=== PATIENT | female | born 1940 | race Caucasian/White ===

== ENCOUNTER 2024-04-08 10:54 | Inpatient (IN) | payer MEDICARE, BC ==
[~2024-04-08] VITALS: Ht 152.4 cm; Wt 53.7 kg
[2024-04-08] MEDS ORDERED: EMPA10TA PO (11:16)
[2024-04-08] MEDS ORDERED: METF-440 PO (11:18)
[2024-04-08] MEDS ORDERED: LEVO25TA9 PO (11:20)
[2024-04-08] MEDS ORDERED: IRBE75TA9 PO (11:22)
[2024-04-08] MEDS ORDERED: BISO5TAB20 PO (11:23)
[2024-04-08] MEDS ORDERED: OMEP20CA15 PO (11:24)
[2024-04-08 12:01] LABS: BASOPHILS # (AUTO) 0.1 K/UL (0.0-0.2); BASOPHILS % (AUTO) 1.1 % (0.0-2.0); EOSINOPHILS # (AUTO) 0.1 K/uL (0.0-0.7); EOSINOPHILS % (AUTO) 1.1 % (0.0-7.0); HEMATOCRIT 32.1 % (31.2-41.9); HEMOGLOBIN 11.3 g/dL (10.9-14.3); LYMPHOCYTES # (AUTO) 1.4 K/uL (0.8-4.8); MEAN CORPUSCULAR HEMOGLOBIN 30.8 uug (24.7-32.8); MEAN CORPUSCULAR HGB CONC 35 g/dL (32.3-35.6); MEAN CORPUSCULAR VOLUME 87.9 fL (75.5-95.3); MONOCYTES # (AUTO) 0.5 K/uL (0.1-1.30); MONOCYTES % (AUTO) 7.2 % (0.0-11.0); NEUTROPHILS # (AUTO) 4.8 K/uL (1.8-8.9); NEUTROPHILS % (AUTO) 70.6 % (38.5-71.5); PLATELET COUNT (AUTO) 214 K/uL (179-408); RED BLOOD CELL COUNT(AUTO) 3.65 MIL/uL (3.63-4.92); WHITE BLOOD COUNT (AUTO) 6.8 K/uL (3.8-11.8)
[2024-04-08 12:03] LABS: DIFFERENTIAL COMMENT 1
[2024-04-08 12:10] LABS: CARBON DIOXIDE 27 mmol/L (21-32); CHLORIDE 105 mmol/L (98-107); CREATININE 0.9 mg/dL (0.6-1.3); GLUCOSE 95 mg/dL (74-106); POTASSIUM 4.4 mmol/L (3.5-5.1); SODIUM SERUM 142 mmol/L (136-145); UREA NITROGEN, BLOOD 14 mg/dL (7-18)
[2024-04-08 12:22] LABS: ALANINE AMINOTRANSFERASE 23 U/L (14-59); ALBUMIN 3.8 g/dL (3.4-5.0); ALKALINE PHOSPHATASE 66 U/L (50-136); ASPARTATE AMINOTRANSFERASE 23 U/L (15-37); BILIRUBIN,DIRECT 0.2 mg/dL (0.0-0.2); BILIRUBIN,TOTAL 0.8 mg/dL (0.2-1.0); NT-PRO BNP 540 pg/mL (0-125); TOTAL PROTEIN, SERUM 7.2 g/dL (6.4-8.2)
[2024-04-08] MEDS ORDERED: IOHEXOL 350 100 ML INFUS..BTL ONE (13:31)
[2024-04-08 20:00] VITALS: BP 138/56; TEMP 97.7; O2SAT 97
[2024-04-08] MEDS ORDERED: ACETAMINOPHEN 325 MG TABLET PO PRN (20:00)
[2024-04-08] MEDS ORDERED: MAGNESIUM HYDROXIDE 30 ML LIQUID UDC PO PRN (20:00)
[2024-04-08] MEDS ORDERED: ONDANSETRON 4 MG/2 ML VIAL IV PRN (20:00)
[2024-04-09 00:36] VITALS: BP 163/63; TEMP 97.7; O2SAT 97
[2024-04-09 04:00] VITALS: BP 145/63; TEMP 97.9; O2SAT 95
[2024-04-09] MEDS: PANTOPRAZOLE SODIUM 40 MG TABLET.DR PO SCH (06:13)
[2024-04-09 06:42] LABS: BASOPHILS % (AUTO) 0.7 % (0.0-2.0); EOSINOPHILS # (AUTO) 0.2 K/uL (0.0-0.7); EOSINOPHILS % (AUTO) 3.3 % (0.0-7.0); HEMATOCRIT 29.8 % (31.2-41.9); LYMPHOCYTES # (AUTO) 2.2 K/uL (0.8-4.8); LYMPHOCYTES % (AUTO) 38.1 % (20.5-51.5); MEAN CORPUSCULAR HEMOGLOBIN 32.3 uug (24.7-32.8); MEAN CORPUSCULAR HGB CONC 37 g/dL (32.3-35.6); MEAN CORPUSCULAR VOLUME 87.5 fL (75.5-95.3); MONOCYTES # (AUTO) 0.6 K/uL (0.1-1.30); MONOCYTES % (AUTO) 9.8 % (0.0-11.0); NEUTROPHILS # (AUTO) 2.8 K/uL (1.8-8.9); NEUTROPHILS % (AUTO) 48.1 % (38.5-71.5); PLATELET COUNT (AUTO) 191 K/uL (179-408); RED CELL DISTRIBUTION WIDTH 13.9 % (12.3-17.7); WHITE BLOOD COUNT (AUTO) 5.8 K/uL (3.8-11.8)
[2024-04-09 06:45] LABS: DIFFERENTIAL COMMENT 1
[2024-04-09 06:57] LABS: CALCIUM 8.5 mg/dL (8.5-10.1); CARBON DIOXIDE 29 mmol/L (21-32); CHLORIDE 105 mmol/L (98-107); CHOLESTEROL 125 mg/dL (<200); CREATININE 0.9 mg/dL (0.6-1.3); GLUCOSE 85 mg/dL (74-106); HDL CHOLESTEROL 57 mg/dL (40-60); PHOSPHOROUS 4.6 mg/dL (2.5-4.9); POTASSIUM 3.7 mmol/L (3.5-5.1); SODIUM SERUM 140 mmol/L (136-145); TRIGLYCERIDES 65 MG/DL (30-150); UREA NITROGEN, BLOOD 14 mg/dL (7-18)
[2024-04-09 07:42] VITALS: BP 132/51; TEMP 98.1; O2SAT 98
[2024-04-09] MEDS: ASPIRIN EC 81 MG TABLET.DR PO SCH (08:16)
[2024-04-09] MEDS: METFORMIN HCL 500 MG TABLET PO SCH (08:17)
[2024-04-09] MEDS: LEVOTHYROXINE SODIUM 25 MCG TABLET PO SCH (08:17)
[2024-04-09] MEDS: ATENOLOL 50 MG TABLET PO SCH (08:17)
[2024-04-09] MEDS: METOPROLOL TARTRATE 50 MG TABLET PO ONE (10:17)
[2024-04-09] MEDS ORDERED: HYDR12.55 PO (10:22)
[2024-04-09] MEDS ORDERED: BUSP7.5T7 PO (10:22)
[2024-04-09] MEDS ORDERED: ATOR40TA PO (10:23)
[2024-04-09] MEDS ORDERED: LEVO112T5 PO (10:49)
[2024-04-09 15:36] VITALS: BP 127/67; TEMP 97.8; O2SAT 99
[2024-04-09] MEDS: ATORVASTATIN 40 MG TABLET PO SCH (20:56)
[2024-04-09] MEDS: TEMAZEPAM 15 MG CAPSULE PO PRN (22:19)
[2024-04-10 00:12] VITALS: BP 127/53; TEMP 98.1; O2SAT 94
[2024-04-10 04:07] VITALS: BP 145/65; TEMP 97.8; O2SAT 95
[2024-04-10] MEDS: LEVOTHYROXINE SODIUM 112 MCG TABLET PO SCH (06:28)
[2024-04-10 07:56] VITALS: BP 122/52; TEMP 98.4; O2SAT 96
[2024-04-10] MEDS: HYDROCHLOROTHIAZIDE 25 MG TABLET PO SCH (08:16)
[2024-04-10] MEDS: busPIRone 5 MG TABLET PO SCH (08:16)
[2024-04-10] MEDS: LOSARTAN POTASSIUM 50 MG TABLET PO SCH (08:17)
[2024-04-10 11:09] VITALS: BP 130/59; TEMP 98.2; O2SAT 95
[2024-04-10] MEDS ORDERED: METFORMIN HCL 500 MG TABLET PO SCH (17:00)
== END 2024-04-10 12:35 | disposition home or self-care (01) | DRG 206 ==
LOC: ER 10:54 → TELE3 18:56 → MEDSURG3 04-10 09:52
PROVIDERS: ADMIT Internal Medicine; ATTEND Internal Medicine
DX: M94.0 Chondrocostal junction syndrome [Tietze] (principal); R07.89 Other chest pain; E78.5 Hyperlipidemia, unspecified; E11.9 Type 2 diabetes mellitus without complications; I10 Essential (primary) hypertension; Z79.84 Long term (current) use of oral hypoglycemic drugs; E03.9 Hypothyroidism, unspecified; Z79.890 Hormone replacement therapy; Z79.899 Other long term (current) drug therapy; Z90.710 Acquired absence of both cervix and uterus; Z87.891 Personal history of nicotine dependence; Z80.9 Family history of malignant neoplasm, unspecified
CPT/HCPCS: 36415; 71045; 71275; 83735; 84100; 84443; 84484; 85025; 85730; A4663; G0378; Q9967